=== PATIENT | female | born 1955 ===

== ENCOUNTER → 2020-07-25 | Outpatient (CLI) | payer MEDICARE ==
--- NOTE | 2020-07-25 11:56 | RAD ---
CT of the abdomen and pelvis without contrast. 07/25/2020 9:24 AM Indication: Reason: HEMATURIA / Spl. Instructions: / History: Comparison Study: None. Technique: Multidetector CT imaging of the abdomen pelvis is obtained without administration of contr ast. Findings: Lung bases are unremarkable. Cholelithiasis noted. Liver is unremarkable. Spleen, right adrenal gland , pancreas are unremarkable. There is a 1.4 cm nodule adrenal gland with attenuation characteristics consistent with an adenoma. There is bilateral nephrolithiasis. On the right there is a 4 mm stone in the inferior pole, 3 mm sto ne in the inferior pole, and a 2 mm stone in the inferior pole. There is a 3.3 cm cyst arising from t he superior pole of the right kidney. On the left there is a 8 mm nonobstructing stone in the superior pole, punctate stone in the midpole, 5 mm stone in the inferior pole, a 4 mm stone in the inferior pole, and 2 adjacent 5 mm stones in th e inferior pole. The ureters are normal in course and caliber. No ureteral stone is seen. There is no evidence of hydr onephrosis involving either kidney. The bladder is decompressed but otherwise grossly unremarkable. There is no evidence of bowel obstruction. No evidence of acute inflammatory change involving the bow el is identified. Diffuse atherosclerotic vascular disease seen. Degenerative changes of the visualiz ed lumbosacral spine are noted. There is an associated below scoliosis of the lumbar spine. IMPRESSION: 1. Bilateral nephrolithiasis as described, without evidence of ureteral stone or obstructive uropathy . 2. Cholelithiasis CT DOSING PQRS STATEMENT: One or more of the following individualized dose reduction techniques were utilized for this examinat ion: 1. Automated exposure control 2. Adjustment of the mA and/or kV according to patient size 3. Use of iterative reconstruction technique Electronically signed by: Audi Guerrero MD (07/25/2020 11:54 AM) [id number]
== END ==
LOC: CT 09:17
PROVIDERS: ATTEND Family Medicine
DX: K80.20 Calculus of gallbladder without cholecystitis without obstruction (principal); R30.0 Dysuria; N20.0 Calculus of kidney
CPT/HCPCS: 74176